=== PATIENT | male | born 1955 | race Two or more races ===

== ENCOUNTER 2021-09-21 07:23 | Day surgery (SDC) | payer OTHER ==
[~2021-09-21 07:23] MED LIST: ZOCOR PO
== END 2021-09-21 16:20 | disposition home or self-care (01) ==
LOC: CIR.AMB 07:23
PROVIDERS: ATTEND Urology
DX: D49.4 Neoplasm of unspecified behavior of bladder (principal); N13.1 Hydronephrosis with ureteral stricture, not elsewhere classified; E78.5 Hyperlipidemia, unspecified

== ENCOUNTER 2021-11-02 06:56 | Inpatient (IN) | payer OTHER | END 2021-11-05 08:42 | disposition home or self-care (01) | DRG 660 | LOC: O/R 06:56 → SURH 12:35 | PROVIDERS: ADMIT Urology | PROC: 0TS70ZZ Reposition Left Ureter, Open Approach (ICD-10-PCS; principal; 2021-11-02) | PROC: 0T770DZ Dilation of Left Ureter with Intraluminal Device, Open Approach (ICD-10-PCS; 2021-11-02) | DX: N13.4 Hydroureter (principal); N13.1 Hydronephrosis with ureteral stricture, not elsewhere classified; Z20.822 Contact with and (suspected) exposure to COVID-19; R31.9 Hematuria, unspecified ==

== ENCOUNTER 2021-11-16 02:28 | Inpatient (IN) | payer OTHER ==
[~2021-11-16] VITALS: Ht 162.6 cm; Wt 72.6 kg
[~2021-11-16 02:28] MED LIST changes: +GABAPENTIN400 MG; +NABUMETONE750 MG; +PANTOPRAZOLE SO40 MG; +SIMVASTATIN40 MG
--- NOTE | 2021-11-16 02:32 | NUR ---
PACIENTE MASCULINO ALERTA Y ORIENTADO X3, REFIERETENER ARDOR Y MOLESTIA POR EL ALCOCER COLOCADO EL CARLA [address], QUE FUE EL CARLA DE LA OPRACION POR .
--- NOTE | 2021-11-16 03:45 | NUR ---
SE LE ORIENTA A PACIENTE SOBRE LAS ORDENES MEDICAS, REFIERE ENTEDER LAS MISMAS. SE CANALIZA Y SE LE COLOCA LOS IVF'S, SE LE EDUARDO LAS MUETRAS DE SHARONA, HAYES LAS ORDENES MEDICAS.
--- NOTE | 2021-11-16 07:03 | NUR ---
SE RECIBE PTE ALERTA Y ORIENTADO X3 EN BABITA BAJA CON BARANDAS ELEVADAS POR SEGURIDAD. SE OBSERVA PTE CON BUEN PATRON RESPIRATORIO, CANALIZACION PATENTE.AREA DE VENOPUNCION CJ DE EDEMA Y ERITEMA. RECIBIENDO 0.9NSS 1000 BAJANDO 150ML/HR. PTE CON FOLLJONA CATETER DRENANDO A GRAVEDAD. PEND CONS. DR CHADWICK.
== END 2021-11-18 12:36 | disposition home or self-care (01) | DRG 690 ==
LOC: ER 02:28 → SURG 09:18 → SEC-K 09:18 → SURG 09:55
PROVIDERS: ADMIT Urology; ATTEND Urology
DX: N39.0 Urinary tract infection, site not specified (principal); B96.5 Pseudomonas (aeruginosa) (mallei) (pseudomallei) as the cause of diseases classified elsewhere; N13.4 Hydroureter; N13.1 Hydronephrosis with ureteral stricture, not elsewhere classified

== ENCOUNTER 2021-12-15 22:53 | Emergency (ER) | payer OTHER ==
[~2021-12-15] VITALS: Ht 162.6 cm; Wt 73.5 kg
[2021-12-16] MEDS ORDERED: LEVOFLOXACIN750 MG PO (01:14)
== END 2021-12-16 | disposition home or self-care (01) ==
LOC: ER 22:53
DX: N39.0 Urinary tract infection, site not specified (principal); B96.5 Pseudomonas (aeruginosa) (mallei) (pseudomallei) as the cause of diseases classified elsewhere

== ENCOUNTER 2025-01-06 07:24 | Inpatient (IN) | payer OTHER ==
[~2025-01-06] VITALS: Ht 162.6 cm; Wt 72.6 kg
[~2025-01-06 07:24] MED LIST changes: +LEVOFLOXACIN750 MG PO
[2025-01-06 07:59] LABS: URINE APPEARANCE Clear; URINE BILIRRUBIN Negative (NEGATIVE); URINE BLOOD Negative; URINE COLOR Yellow; URINE GLUCOSE Negative (NEGATIVE); URINE KETONE Negative (NEGATIVE); URINE LEUKOCYTE Negative; URINE NITRATE Negative; URINE PROTEIN Negative (NEGATIVE); URINE UROBILINOGEN 0.2 E.U./dl
[2025-01-06 08:03] LABS: BASO % 0.4 % (0.1-1.2); EOS # 0.03 (0.04-0.54); EOS % 0.6 % (0.7-7.0); LYMPH # 1.56 (1.18-3.74); LYMPH % 32.2 % (19.3-53.1); MEAN PLATELET VOLUME 9.50 fl (9.4-12.4); MONO # 0.38 (0.24-0.82); MONO % 7.8 % (4.7-12.5); NEUT # 2.86 (1.56-6.13); NEUT % 59.0 % (34.0-71.1); RED CELL DISTRIBUTION WIDTH 13.9 % (11.6-14.4)
[2025-01-06 08:07] LABS: URINE BACTERIA 2.3 uL (0.0-1933); URINE CAST 0.14 uL (0.0-1.40); URINE EPITHELIAL CELLS 1.2 uL (0.0-38.8); URINE RBC 1.0 uL (0.0-20.8); URINE WBC 1.6 uL (0.0-23.2)
[2025-01-06 08:13] LABS: COVID-19 AG NEGATIVE (NEGATIVE)
[2025-01-06] MEDS ORDERED: ZOCOR40 MG PO (08:19)
[2025-01-06 08:22] VITALS: BP 122/80
[2025-01-06 08:34] LABS: BUN CREA RATIO 18.0 (7.0-25.0); CREATININE SERUM 0.97 mg/dL (0.70-1.30); GFR 76.74; GLUCOSE FASTING 111.0 mg/dL (65-100); OSMOLALITY SERUM 289.0 MOSM/KG (275-295)
[2025-01-06 08:37] LABS: INR 1.01
[2025-01-14] MEDS ORDERED: CEFAZOLIN SODIUM 1,000 MG VIAL IV ONE (11:15)
[2025-01-14] MEDS ORDERED: ENOXAPARIN SODIUM 40 MG/0.4 ML SYRINGE SUBCUTANEO ONE (11:15)
[2025-01-14] MEDS ORDERED: SIMETHICONE 125 MG CAPSULE PO SCH ×2 (13:00)
[2025-01-14] MEDS ORDERED: SUGAMMADEX SODIUM 200 MG/2 ML VIAL IV ONE (14:10)
[2025-01-14] MEDS ORDERED: ONDANSETRON HCL 2 MG/ML VIAL ONE (16:36)
[2025-01-14] MEDS ORDERED: CEFAZOLIN SODIUM 1,000 MG VIAL ONE (16:37)
[2025-01-14] MEDS ORDERED: KETOROLAC TROMETHAMINE 30 MG VIAL ONE (16:37)
[2025-01-14] MEDS ORDERED: DOCUSATE SODIUM 100MG CAP PO SCH (17:00)
[2025-01-14] MEDS ORDERED: ONDANSETRON HCL 2 MG/ML VIAL IV SCH (17:00)
[2025-01-14] MEDS ORDERED: CEFAZOLIN SODIUM 1,000 MG VIAL IV SCH (17:00)
[2025-01-14] MEDS ORDERED: KETOROLAC TROMETHAMINE 30 MG VIAL IV ONE (18:15)
[2025-01-14] MEDS ORDERED: MORPHINE SULFATE 2 MG/ML SYRINGE IV PRN (22:15)
[2025-01-14] MEDS ORDERED: ACETAMINOPHEN WITH CODEINE 1 UDTAB TABLET PO PRN (23:45)
[2025-01-15] VITALS: BP 102/60; O2SAT 95
[2025-01-15 08:00] LABS: BUN CREA RATIO 13.0 (7.0-25.0); CREATININE SERUM 0.88 mg/dL (0.70-1.30); GFR 85.86; GLUCOSE FASTING 111.0 mg/dL (65-100); OSMOLALITY SERUM 289.0 MOSM/KG (275-295)
[2025-01-15 08:17] LABS: BASO % 0.1 % (0.1-1.2); EOS # 0.01 (0.04-0.54); EOS % 0.1 % (0.7-7.0); LYMPH # 1.22 (1.18-3.74); LYMPH % 13.6 % (19.3-53.1); MEAN PLATELET VOLUME 10.20 fl (9.4-12.4); MONO # 0.64 (0.24-0.82); MONO % 7.1 % (4.7-12.5); NEUT # 7.08 (1.56-6.13); NEUT % 78.9 % (34.0-71.1); RED CELL DISTRIBUTION WIDTH 13.9 % (11.6-14.4)
[2025-01-15 08:18] VITALS: BP 116/79; O2SAT 95
[2025-01-15] MEDS ORDERED: DEXTROSE 5 %-0.45 % SOD CHLORD 1,000 ML IV SCH (09:00)
[2025-01-15 09:07] VITALS: BP 116/79; O2SAT 95
[2025-01-15 16:34] VITALS: BP 118/74; O2SAT 96
[2025-01-16 00:02] VITALS: BP 139/82; O2SAT 95
[2025-01-16 08:17] VITALS: BP 145/76; O2SAT 95
== END 2025-01-16 14:35 | disposition home or self-care (01) | DRG 716 ==
LOC: O/R 01-14 07:00 → SURH 01-14 07:45 → SURG 01-14 18:27
PROVIDERS: ADMIT Urology; ATTEND Urology
PROC: 0VB00ZZ Excision of Prostate, Open Approach (ICD-10-PCS; principal; 2025-01-14 08:30)
DX: C61 Malignant neoplasm of prostate (principal)

== ENCOUNTER 2025-02-09 04:11 | Emergency (ER) | payer OTHER ==
[~2025-02-09] VITALS: Ht 162.6 cm; Wt 73.5 kg
[~2025-02-09 04:11] MED LIST changes: +ZOCOR40 MG PO
[2025-02-09] MEDS ORDERED: ADCIRCA20 MG PO (04:35)
[2025-02-09] MEDS ORDERED: PHENAZOPYRIDINE HCL 100 MG TABLET PO STA (04:55)
[2025-02-09] MEDS ORDERED: CEFTRIAXONE SODIUM 1,000 MG VIAL IV STA (04:55)
[2025-02-09] MEDS ORDERED: SODIUM CHLORIDE 0.45 % 500 ML IV ONE (05:00)
[2025-02-09 06:17] LABS: BASO % 0.3 % (0.1-1.2); EOS # 0.05 (0.04-0.54); EOS % 0.8 % (0.7-7.0); LYMPH # 1.19 (1.18-3.74); LYMPH % 18.0 % (19.3-53.1); MEAN PLATELET VOLUME 8.90 fl (9.4-12.4); MONO # 0.36 (0.24-0.82); MONO % 5.4 % (4.7-12.5); NEUT # 4.98 (1.56-6.13); NEUT % 75.3 % (34.0-71.1); RED CELL DISTRIBUTION WIDTH 13.3 % (11.6-14.4)
[2025-02-09 06:37] LABS: INR 1.04
[2025-02-09 06:39] LABS: ALT/SGPT 16.0 U/L (12-78); AST/SGOT 10.0 U/L (15-37); BILIRUBIN TOTAL 0.67 mg/dL (0.3-1.2); BUN CREA RATIO 15.0 (7.0-25.0); CREATININE SERUM 0.85 mg/dL (0.70-1.30); GFR 89.37; GLOBULINA 2.6 G/DL (2.4-3.5); GLUCOSE FASTING 104.0 mg/dL (65-100); OSMOLALITY SERUM 287.0 MOSM/KG (275-295)
[2025-02-09 06:51] LABS: URINE APPEARANCE Cloudy; URINE BILIRRUBIN Small (NEGATIVE); URINE BLOOD Large; URINE COLOR Red; URINE GLUCOSE Negative (NEGATIVE); URINE KETONE Negative (NEGATIVE); URINE LEUKOCYTE Moderate; URINE NITRATE Negative; URINE UROBILINOGEN 0.2 E.U./dl
[2025-02-09 06:52] LABS: URINE BACTERIA 217.1 uL (0.0-1933); URINE EPITHELIAL CELLS 39.3 uL (0.0-38.8); URINE WBC 343.1 uL (0.0-23.2)
[2025-02-09 07:04] LABS: URINE CAST 0.31 uL (0.0-1.40); URINE PROTEIN 100 (NEGATIVE); URINE RBC > 10558.9 uL (0.0-20.8)
== END 2025-02-09 09:10 | disposition home or self-care (01) ==
LOC: ER 04:11
PROVIDERS: General Practice
DX: N20.1 Calculus of ureter (principal); R30.0 Dysuria; R31.9 Hematuria, unspecified; N39.0 Urinary tract infection, site not specified; Z88.6 Allergy status to analgesic agent
CPT/HCPCS: 36415; 74176; 96365; 99284; J0696